=== PATIENT | female | born 1995 | race African-American/Black ===

== ENCOUNTER 2017-10-07 10:35 | Emergency (ER) | payer MEDICAID, OTHER ==
[~2017-10-07] VITALS: Ht 157.5 cm; Wt 64.0 kg
[2017-10-07] MEDS ORDERED: BACITRACIN ZINC OINT UDPKT TOP ONE (12:45)
[2017-10-07] MEDS ORDERED: LIDOCAINE HCL 1% 20ML VIAL (Pyxis) INJ MC ONE (12:45)
[2017-10-07] MEDS ORDERED: KETOROLAC 60MG/2ML VIAL IM ONE (12:45)
[2017-10-07 12:55] VITALS: BP 132/77
== END 2017-10-07 13:57 | disposition home or self-care (01) ==
LOC: ER 11:16
DX: L02.415 Cutaneous abscess of right lower limb (principal); F17.200 Nicotine dependence, unspecified, uncomplicated
CPT/HCPCS: 10060; 81025; 96372; 99283; J1885; J3490; X7700; Z7610

== ENCOUNTER 2017-10-11 11:21 | Emergency (ER) | payer OTHER ==
[~2017-10-11] VITALS: Ht 157.5 cm; Wt 63.0 kg
[2017-10-11 11:36] VITALS: BP 114/65
== END 2017-10-11 12:06 | disposition home or self-care (01) ==
LOC: ER 11:21
DX: L02.415 Cutaneous abscess of right lower limb (principal); F17.200 Nicotine dependence, unspecified, uncomplicated
CPT/HCPCS: 99281; 99282

== ENCOUNTER 2019-05-19 14:13 | Inpatient (IN) | payer MEDICAID, OTHER ==
[~2019-05-19] VITALS: Ht 160 cm; Wt 63.5 kg
[2019-05-19] MEDS ORDERED: LACTATED RINGERS 1,000 ML IV SCH (14:22)
[2019-05-19] MEDS ORDERED: BUTORPHANOL TARTRATE 2 MG/ML VIAL IV PRN (14:30)
[2019-05-19] MEDS ORDERED: CARBOPROST TROMETHAMINE 250 MCG/ML AMPUL IM PRN (14:30)
[2019-05-19] MEDS ORDERED: METHYLERGONOVINE MALEATE 0.2 MG/ML IM PRN (14:30)
[2019-05-19] MEDS ORDERED: LIDOCAINE HCL 1% 20ML VIAL (Pyxis) INJ INFIL SCH (14:30)
[2019-05-19] MEDS ORDERED: NALOXONE HCL 0.4 MG/ML 1ML VIAL IM PRN (14:30)
[2019-05-19] MEDS ORDERED: MINERAL OIL 30ML BOTTLE PO ONE (14:30)
[2019-05-19] MEDS ORDERED: DEXT 5%/LR + PITOCIN 20UNITS/L 1,000 ML IV SCH ×2 (14:34→19:07)
[2019-05-19] MEDS ORDERED: IBUPROFEN 800MG TABLET PO NR (16:08)
[2019-05-19 16:15] LABS: BASOPHILS % 0.3 % (0.0-2.0); EOSINOPHILS % 0.3 % (0.0-5.0); HEMATOCRIT. 30.4 % (36.0-48.0); HEMOGLOBIN. 9.6 g/dL (12.0-16.0); LYMPHOCYTES % 14.3 % (20.0-50.0); MEAN CORPUSCULAR HEMOGLOBIN 22.9 pg (28.0-32.0); MEAN CORPUSCULAR VOLUME 72.6 fL (81.0-99.0); MONOCYTES % 3.8 % (2.0-8.0); NEUTROPHILS % 81.3 % (40.0-76.0); PLATELET 244 x1000/uL (130-400); RED BLOOD CELL COUNT 4.19 mill/uL (4.2-5.4); RED CELL DISTRIBUTION WIDTH 18.5 % (11.6-14.6)
[2019-05-19 16:18] LABS: PROTHROMBIN TIME 10.2 sec (9.6-11.0)
[2019-05-19 16:28] LABS: CLARITY URINE CLEAR (CLEAR); COLOR URINE YELLOW (YELLOW); KETONES URINE TRACE (NEGATIVE); LEUKOCYTE ESTERASE URINE TRACE (NEGATIVE); NITRITE URINE NEGATIVE (NEGATIVE); OCCULT BLOOD URINE 2+ (NEGATIVE); PH URINE 6.5 (4.5-8.0); PROTEIN URINE NEGATIVE (NEGATIVE); SPECIFIC GRAVITY URINE 1.017 (1.005-1.030); UROBILINOGEN URINE 0.2 E.U./dL (0.2-1.0)
[2019-05-19 16:43] LABS: HEPATITIS B SURFACE ANTIGEN NEGATIVE
[2019-05-19 16:57] LABS: *AMPHETAMINES SCREEN URINE NEGATIVE (NEGATIVE); *BARBITURATES SCREEN URINE NEGATIVE (NEGATIVE); *BENZODIAZEPINES SCREEN URINE NEGATIVE (NEGATIVE); *COCAINE SCREEN URINE NEGATIVE (NEGATIVE); METHADONE URINE SCREEN NEGATIVE (NEGATIVE); OPIATES URINE SCREEN NEGATIVE (NEGATIVE)
[2019-05-19 16:58] LABS: CANNABINOID URINE SCREEN NEGATIVE (NEGATIVE); PHENCYCLIDINE URINE SCREEN NEGATIVE (NEGATIVE)
[2019-05-19 17:10] VITALS: BP 95/49
[2019-05-19 17:40] VITALS: BP 94/50
[2019-05-19] MEDS ORDERED: RHO(D) IMMUNE GLOBULIN 300 MCG/SYR IM PRN (19:15)
[2019-05-19] MEDS ORDERED: LANOLIN OINT 7GM TUBE TOP PRN (19:15)
[2019-05-19] MEDS ORDERED: ACETAMINOPHEN WITH CODEINE 300/30MG TABLET PO PRN ×2 (19:15)
[2019-05-19] MEDS ORDERED: HEMORRHOIDAL SUPP PR PRN (19:15)
[2019-05-19] MEDS ORDERED: BISACODYL 10MG SUPP PR PRN (19:15)
[2019-05-19] MEDS: MAGNESIUM/ALUMINUM HYDROXIDE/SIMETHICONE 30ML UDC PO SCH (20:25)
[2019-05-19] MEDS: SIMETHICONE 80MG TABLET CHEW PO SCH (20:26)
[2019-05-19] MEDS ORDERED: DOCUSATE SODIUM 100MG CAPSULE PO SCH (21:00)
[2019-05-19 22:00] VITALS: BP 111/52
[2019-05-20] MEDS: IBUPROFEN 400MG TABLET PO PRN ×3 (05:19→17:50)
[2019-05-20 05:35] VITALS: BP 106/56
[2019-05-20 06:47] LABS: BASOPHILS % 0.6 % (0.0-2.0); EOSINOPHILS % 0.5 % (0.0-5.0); HEMATOCRIT. 28.6 % (36.0-48.0); HEMOGLOBIN. 9.1 g/dL (12.0-16.0); LYMPHOCYTES % 13.4 % (20.0-50.0); MEAN CORPUSCULAR HEMOGLOBIN 22.9 pg (28.0-32.0); MEAN CORPUSCULAR VOLUME 71.9 fL (81.0-99.0); MEAN PLATELET VOLUME 9.9 fl (7.4-10.4); MONOCYTES % 7.2 % (2.0-8.0); NEUTROPHILS % 78.3 % (40.0-76.0); PLATELET 264 x1000/uL (130-400); RED BLOOD CELL COUNT 3.98 mill/uL (4.2-5.4); RED CELL DISTRIBUTION WIDTH 17.8 % (11.6-14.6)
[2019-05-20 07:30] VITALS: BP 98/54
[2019-05-20] MEDS: SIMETHICONE 80MG TABLET CHEW PO SCH ×3 (08:18→17:50)
[2019-05-20] MEDS: MAGNESIUM/ALUMINUM HYDROXIDE/SIMETHICONE 30ML UDC PO SCH ×3 (08:18→17:50)
[2019-05-20 16:00] VITALS: BP 106/52
[2019-05-20 19:45] VITALS: BP 96/63
[2019-05-21 04:10] VITALS: BP 98/61
[2019-05-21 08:20] VITALS: BP 109/50
[2019-05-21] MEDS ORDERED: TETANUS, DIPHTHERIA, PERTUSSIS VAC/PF 0.5ML (>7YR OLD) IM ONE (09:00)
== END 2019-05-21 11:30 | disposition home or self-care (01) | DRG 560 ==
LOC: 8 EST LDRP 14:13 → OBSVTOIN 14:13 → 8EST 17:10
PROVIDERS: ADMIT Obstetrics & Gynecology; ATTEND Obstetrics & Gynecology
PROC: 10E0XZZ Delivery of Products of Conception, External Approach (ICD-10-PCS; principal; 2019-05-19)
DX: O80 Encounter for full-term uncomplicated delivery (principal); Z37.0 Single live birth; O99.03 Anemia complicating the puerperium; Z3A.39 39 weeks gestation of pregnancy
CPT/HCPCS: 36415; 80305; 81003; 86592; 86703; 86762; 86850; 86900; 87340; 90715; G0378; J0595; J2590; J3490; J7120; A4315